=== PATIENT | female | born 1950 | race Native Hawaiian/Other Pacific Islander ===

== ENCOUNTER 2016-10-26 11:11 | Outpatient (CLI) | payer OTHER | END 2016-10-26 12:20 | disposition home or self-care (01) | LOC: MAMMO 11:11 | DX: Z12.31 Encounter for screening mammogram for malignant neoplasm of breast (principal) | CPT/HCPCS: G0202-TC ==

== ENCOUNTER 2016-11-24 14:52 | Outpatient (CLI) | payer OTHER | END 2016-11-24 16:30 | disposition home or self-care (01) | LOC: US 14:52 → MAMMO 15:30 → US 16:00 | DX: N64.89 Other specified disorders of breast (principal) | CPT/HCPCS: G0206-TC ==